=== PATIENT | female | born 1970 | race Caucasian/White ===

== ENCOUNTER 2016-07-09 15:00 | Outpatient (CLI) | payer BC ==
--- NOTE | 2016-07-09 16:15 | DIAGNOSTIC IMAGING REPORT ---
PROCEDURE: MR LUMBAR SPINE W/O CONTRAST INDICATION: SPINAL STENOSIS OF LUMBAR REGION TECHNIQUE: Noncontrast T1, T2, and STIR sagittal images. T1 and T2 axial images. COMPARISON: None. FINDINGS: L1-2: Normal. L2-3: Normal. L3-4: Normal. L4-5: Normal. L5-S1: At L5-S1 there is spondylosis, disc dessication and a central bulging disc. IMPRESSION: 1. Central bulging disc L5-S1.
== END 2016-07-09 23:00 ==
LOC: MRI SRH 15:00
DX: M51.27 Other intervertebral disc displacement, lumbosacral region (principal)

== ENCOUNTER 2016-10-01 10:01 | Outpatient (CLI) | payer BC ==
--- NOTE | 2016-10-01 15:08 | DIAGNOSTIC IMAGING REPORT ---
PROCEDURE: MG BILATERAL SCREENING W/CAD INDICATION: SCREENING TECHNIQUE: Standard CC and MLO views bilaterally. Computer aided detection was used. COMPARISON: 07/10/2015, 06/26/2014, 06/15/2013 FINDINGS: Moderately dense fibroglandular tissue is present bilaterally. 13 mm lobulated area of glandular density in the right breast at the 11 o'clock position at a mid depth developing over prior studies. No suspicious microcalcifications. IMPRESSION: 1. Development of right breast central lobulated glandular density. Further evaluation with special mammographic views and ultrasound is recommended. 2. The patient will be contacted. RESULT CODE: 0- Incomplete; needs additional evaluation. A. A negative report should not delay biopsy if a dominant or clinically suspicious mass is present. 10-15% of cancers are not identified by x-ray. B. A negative report may reinforce clinical impression. C. Adenosis and dense breasts may obscure an underlying neoplasm. D. False positive reports average 6-10%. E.. A yearly screening mammogram is recommended. A reminder letter will be scheduled.
== END 2016-10-01 23:00 ==
LOC: MAM SRH 10:01
DX: Z12.31 Encounter for screening mammogram for malignant neoplasm of breast (principal)